=== PATIENT | male | born 1970 | race Caucasian/White ===

== ENCOUNTER 2019-01-13 13:11 | Emergency (ER) | payer BC ==
[~2019-01-13] VITALS: Ht 180.3 cm; Wt 108.9 kg
[~2019-01-13 13:11] MED LIST: ALBIPROI; ALBU90OI; ALBU90OI INH; AMOX875; AZIT500 PO; BENZ100A PO; BUDE6HFA INH; DOXY100 PO; FLUSAL5005; HYDGUAL120 PO; LEVFLO500 PO; PRED10 PO; PRED20 PO; TRIA55OI
[2019-01-13] MEDS ORDERED: ALBU90OI6 INH (15:15)
[2019-01-13] MEDS ORDERED: META800 PO (15:15)
[2019-01-13] MEDS ORDERED: OLAN5 PO ×2 (15:38→15:40)
== END 2019-01-13 15:46 | disposition home or self-care (01) ==
LOC: ER 13:11
DX: Z76.0 Encounter for issue of repeat prescription (principal); Z87.891 Personal history of nicotine dependence; Z79.899 Other long term (current) drug therapy; J45.909 Unspecified asthma, uncomplicated; F31.9 Bipolar disorder, unspecified; F43.10 Post-traumatic stress disorder, unspecified
CPT/HCPCS: 99281

== ENCOUNTER 2019-07-09 10:25 | Emergency (ER) | payer BC ==
[~2019-07-09] VITALS: Ht 177.8 cm; Wt 99.8 kg
[~2019-07-09 10:25] MED LIST changes: +ALBU90OI6 INH; +META800 PO; +OLAN5 PO
[2019-07-09] MEDS ORDERED: Lithium Carbon450 MG PO (10:37)
[2019-07-09 11:02] LABS: BASOPHILS ABSOLUTE AUTO 0.08 K/mm3 (0.00-0.23); BASOPHILS PERCENT AUTO 1 % (0-2); EOSINOPHILS ABSOLUTE AUTO 0.25 K/mm3 (0.00-0.68); EOSINOPHILS PERCENT AUTO 2 % (0-6); Hematocrit 44.3 % (37.0-53.0); Hemoglobin 15.4 g/dL (13.5-17.5); IMMATURE GRAN ABSOLUTE AUTO 0.03 K/mm3 (0.00-0.10); IMMATURE GRAN PERCENT AUTO 0 % (0-1); LYMPHOCYTES ABSOLUTE AUTO 2.86 K/mm3 (0.84-5.20); LYMPHOCYTES PERCENT AUTO 28 % (21-46); MONOCYTES ABSOLUTE AUTO 0.68 K/mm3 (0.16-1.47); MONOCYTES PERCENT AUTO 7 % (4-13); Mean Corpuscular HGB 31.6 pg (26.0-34.0); Mean Corpuscular HGB Conc 34.8 g/dL (31.5-36.5); Mean Corpuscular Volume 91 fL (80-100); Mean Platelet Volume 11.3 fL (9.1-12.4); NEUTROPHILS ABSOLUTE AUTO 6.41 K/mm3 (1.96-9.15); NEUTROPHILS PERCENT AUTO 62 % (41-73); Platelet Count 195 K/mm3 (150-400); RDW Coefficient Variation 12.1 % (11.7-14.2); RDW Standard Deviation 40.2 fL (35.1-46.3); Red Blood Cell Count 4.87 M/mm3 (4.30-5.90); White Blood Cell Count 10.31 K/mm3 (4.00-11.30)
[2019-07-09 11:16] LABS: Alanine Aminotransfer (ALT/SGP 25 U/L (12-78); Albumin, Blood 3.6 g/dL (3.4-5.0); Albumin/Globulin Ratio 1.1 (0.8-1.8); Alk Phos 81 U/L (50-136); Anion Gap 7 mmol/L (6-16); Aspartate Aminotrans (AST/SGOT 19 U/L (12-37); Bilirubin, Total 0.4 mg/dL (0.1-1.0); Blood Urea Nitrogen 12 mg/dL (8-24); Bun/Creatinine Ratio 11.9 (12.0-20.0); CO2, Blood 23 mmol/L (21-32); Calcium, Blood 8.7 mg/dL (8.5-10.1); Chloride, Blood 108 mmol/L (98-108); Creatinine, Blood 1.01 mg/dL (0.60-1.20); Globulin, Blood 3.2 g/dL (2.2-4.0); Glomerular Filtration Rate >60 (60-); Glucose, Blood 105 mg/dL (70-99); Magnesium, Blood 1.8 mg/dL (1.6-2.4); Potassium, Blood 4.2 mmol/L (3.5-5.5); Sodium, Blood 138 mmol/L (136-145); Total Protein, Blood 6.8 g/dL (6.4-8.2); Troponin I <0.015 ng/mL (0.000-0.040)
[2019-07-09 11:55] LABS: Lithium 0.22 mmol/L (0.60-1.20)
[2019-07-09 11:58] LABS: Free Thyroxine 0.9 ng/dL (0.70-1.60)
[2019-07-09 12:00] LABS: Thyroid Stimulating Hormone 1.19 uIU/mL (0.360-4.800)
[2019-07-13] MEDS ORDERED: PROP10 PO (02:53)
== END 2019-07-09 13:22 | disposition home or self-care (01) ==
LOC: ER 10:25
PROVIDERS: Emergency Medicine
DX: I49.3 Ventricular premature depolarization (principal); F31.81 Bipolar II disorder; F43.10 Post-traumatic stress disorder, unspecified; Z87.891 Personal history of nicotine dependence; Z79.899 Other long term (current) drug therapy
CPT/HCPCS: 71046; 80053; 80178; 83735; 84439; 84443; 84484; 85025; 93005; 93010; 99285-25

== ENCOUNTER → 2019-07-12 | Outpatient (CLI) | payer BC ==
[~2019-07-12] MED LIST changes: +Ativan1 MG PO; +Lithium Carbon450 MG PO; +PROP10 PO
== END | disposition home or self-care (01) ==
LOC: LAB SHORT 10:19 → LAB EV 10:19
DX: R07.9 Chest pain, unspecified (principal)
CPT/HCPCS: 84484

== ENCOUNTER 2019-07-13 15:32 | Emergency (ER) | payer BC ==
[~2019-07-13] VITALS: Ht 177.8 cm; Wt 97.5 kg
[~2019-07-13 15:32] MED LIST changes: -Ativan1 MG PO
[2019-07-13] MEDS ORDERED: Ativan1 MG PO (16:48)
[2019-07-13 17:03] LABS: Alanine Aminotransfer (ALT/SGP 23 U/L (12-78); Albumin, Blood 3.6 g/dL (3.4-5.0); Albumin/Globulin Ratio 1.3 (0.8-1.8); Alk Phos 73 U/L (50-136); Anion Gap 4 mmol/L (6-16); Aspartate Aminotrans (AST/SGOT 15 U/L (12-37); Bilirubin, Total 0.7 mg/dL (0.1-1.0); Blood Urea Nitrogen 9 mg/dL (8-24); Bun/Creatinine Ratio 10.3 (12.0-20.0); CO2, Blood 24 mmol/L (21-32); Chloride, Blood 110 mmol/L (98-108); Creatinine, Blood 0.88 mg/dL (0.60-1.20); Globulin, Blood 2.8 g/dL (2.2-4.0); Glomerular Filtration Rate >60 (60-); Glucose, Blood 107 mg/dL (70-99); Sodium, Blood 138 mmol/L (136-145); Total Protein, Blood 6.4 g/dL (6.4-8.2)
[2019-07-13 17:05] LABS: Troponin I <0.015 ng/mL (0.000-0.040)
== END 2019-07-13 17:46 | disposition home or self-care (01) ==
LOC: ER 15:32
PROVIDERS: Emergency Medicine; Physician Assistant
DX: I49.3 Ventricular premature depolarization (principal); F41.9 Anxiety disorder, unspecified; J45.909 Unspecified asthma, uncomplicated; F43.10 Post-traumatic stress disorder, unspecified; F31.81 Bipolar II disorder; Z79.899 Other long term (current) drug therapy
CPT/HCPCS: 36415; 80053; 84443; 84484; 93005; 93010; 99283-25

== ENCOUNTER 2019-08-07 11:36 | Emergency (ER) | payer BC ==
[~2019-08-07] VITALS: Ht 177.8 cm; Wt 99.8 kg
[~2019-08-07 11:36] MED LIST changes: +Ativan1 MG PO
[2019-08-07 12:14] LABS: BASOPHILS ABSOLUTE AUTO 0.05 K/mm3 (0.00-0.23); BASOPHILS PERCENT AUTO 1 % (0-2); EOSINOPHILS ABSOLUTE AUTO 0.25 K/mm3 (0.00-0.68); EOSINOPHILS PERCENT AUTO 3 % (0-6); Hematocrit 44.1 % (37.0-53.0); Hemoglobin 15.1 g/dL (13.5-17.5); IMMATURE GRAN ABSOLUTE AUTO 0.07 K/mm3 (0.00-0.10); IMMATURE GRAN PERCENT AUTO 1 % (0-1); LYMPHOCYTES ABSOLUTE AUTO 2.64 K/mm3 (0.84-5.20); LYMPHOCYTES PERCENT AUTO 28 % (21-46); MONOCYTES ABSOLUTE AUTO 0.84 K/mm3 (0.16-1.47); MONOCYTES PERCENT AUTO 9 % (4-13); Mean Corpuscular HGB 31.8 pg (26.0-34.0); Mean Corpuscular HGB Conc 34.2 g/dL (31.5-36.5); Mean Corpuscular Volume 93 fL (80-100); Mean Platelet Volume 10.9 fL (9.1-12.4); NEUTROPHILS ABSOLUTE AUTO 5.69 K/mm3 (1.96-9.15); NEUTROPHILS PERCENT AUTO 60 % (41-73); Platelet Count 210 K/mm3 (150-400); RDW Coefficient Variation 12.2 % (11.7-14.2); RDW Standard Deviation 41.7 fL (35.1-46.3); Red Blood Cell Count 4.75 M/mm3 (4.30-5.90); White Blood Cell Count 9.54 K/mm3 (4.00-11.30)
[2019-08-07 12:24] LABS: Alanine Aminotransfer (ALT/SGP 32 U/L (12-78); Albumin, Blood 3.4 g/dL (3.4-5.0); Alk Phos 91 U/L (50-136); Anion Gap 4 mmol/L (6-16); Aspartate Aminotrans (AST/SGOT 22 U/L (12-37); Bilirubin, Total 0.4 mg/dL (0.1-1.0); Blood Urea Nitrogen 17 mg/dL (8-24); Bun/Creatinine Ratio 18.7 (12.0-20.0); CO2, Blood 29 mmol/L (21-32); Chloride, Blood 110 mmol/L (98-108); Creatinine, Blood 0.91 mg/dL (0.60-1.20); Globulin, Blood 3.4 g/dL (2.2-4.0); Glomerular Filtration Rate >60 (60-); Glucose, Blood 98 mg/dL (70-99); Potassium, Blood 4.6 mmol/L (3.5-5.5); Sodium, Blood 143 mmol/L (136-145); Total Protein, Blood 6.8 g/dL (6.4-8.2); Troponin I <0.015 ng/mL (0.000-0.040)
[2019-08-07] MEDS ORDERED: Clonazepam0.5 MG PO (13:00)
[2019-08-07] MEDS ORDERED: OLANZAPINE5 M1 PO (13:00)
[2019-08-07] MEDS ORDERED: Hydroxyzine HCl50 MG (13:00)
[2019-08-07] MEDS ORDERED: NEBI5 PO (13:01)
== END 2019-08-07 13:37 | disposition home or self-care (01) ==
LOC: ER 11:36
PROVIDERS: Emergency Medicine
DX: R00.2 Palpitations (principal); R00.8 Other abnormalities of heart beat; F31.81 Bipolar II disorder; F43.10 Post-traumatic stress disorder, unspecified; Z87.891 Personal history of nicotine dependence; Z79.899 Other long term (current) drug therapy
CPT/HCPCS: 36415; 80053; 83735; 83880; 84484; 85025; 93005; 93010; 96360; 99285-25; J7030

== ENCOUNTER 2024-03-18 10:28 | Emergency (ER) | payer BC ==
[~2024-03-18] VITALS: Ht 180.3 cm; Wt 117.9 kg
[~2024-03-18 10:28] MED LIST changes: +Clonazepam0.5 MG PO; +Hydroxyzine HCl50 MG; +NEBI5 PO; +OLANZAPINE5 M1 PO
[2024-03-18] MEDS ORDERED: NS 1,000 ML IV SCH (11:10)
[2024-03-18 11:22] LABS: BASOPHILS ABSOLUTE AUTO 0.04 K/mm3 (0.00-0.23); BASOPHILS PERCENT AUTO 1 % (0-2); EOSINOPHILS ABSOLUTE AUTO 0.11 K/mm3 (0.00-0.68); EOSINOPHILS PERCENT AUTO 2 % (0-6); Hematocrit 44.6 % (37.0-53.0); Hemoglobin 15.7 g/dL (13.5-17.5); IMMATURE GRAN ABSOLUTE AUTO 0.04 K/mm3 (0.00-0.10); IMMATURE GRAN PERCENT AUTO 1 % (0-1); LYMPHOCYTES ABSOLUTE AUTO 1.28 K/mm3 (0.84-5.20); LYMPHOCYTES PERCENT AUTO 18 % (21-46); MONOCYTES ABSOLUTE AUTO 0.86 K/mm3 (0.16-1.47); MONOCYTES PERCENT AUTO 12 % (4-13); Mean Corpuscular HGB 33.3 pg (26.0-34.0); Mean Corpuscular HGB Conc 35.2 g/dL (31.5-36.5); Mean Corpuscular Volume 95 fL (80-100); Mean Platelet Volume 11.1 fL (9.1-12.4); NEUTROPHILS ABSOLUTE AUTO 4.69 K/mm3 (1.96-9.15); NEUTROPHILS PERCENT AUTO 67 % (41-73); Platelet Count 165 K/mm3 (150-400); RDW Coefficient Variation 11.4 % (11.7-14.2); RDW Standard Deviation 39.5 fL (35.1-46.3); Red Blood Cell Count 4.71 M/mm3 (4.30-5.90); White Blood Cell Count 7.02 K/mm3 (4.00-11.30)
[2024-03-18 11:27] LABS: Albumin, Blood 3.5 g/dL (3.4-5.0); Albumin/Globulin Ratio 1.2 (0.8-1.8); Bilirubin, Total 0.8 mg/dL (0.1-1.0); Bun/Creatinine Ratio 15.3 (12.0-20.0); Calcium, Blood 8.6 mg/dL (8.5-10.1); Creatinine, Blood 0.79 mg/dL (0.60-1.20); Globulin, Blood 2.9 g/dL (2.2-4.0); Magnesium, Blood 2.3 mg/dL (1.6-2.4); Potassium, Blood 4.2 mmol/L (3.5-5.5); Total Protein, Blood 6.4 g/dL (6.4-8.2)
[2024-03-18 13:15] VITALS: BP 117/85
== END 2024-03-18 13:24 | disposition home or self-care (01) ==
LOC: ER 10:28
PROVIDERS: Student in an Organized Health Care Education/Training Program
DX: R00.2 Palpitations (principal); R55 Syncope and collapse; F43.10 Post-traumatic stress disorder, unspecified; Z86.79 Personal history of other diseases of the circulatory system; Z87.891 Personal history of nicotine dependence; J45.909 Unspecified asthma, uncomplicated; Z79.899 Other long term (current) drug therapy
CPT/HCPCS: 71046; 80053; 83735; 83880; 84484; 85025; 93005; 93010; 93246; 96360; 99284-25; J7030

== ENCOUNTER 2024-07-28 08:57 | Day surgery (SDC) | payer BC ==
[2024-07-28] VITALS (9 sets, daily range): BP systolic 135–157; BP diastolic 76–94
[~2024-07-28] VITALS: Ht 180.3 cm; Wt 118.4 kg
[~2024-07-28 08:57] MED LIST changes: +METO25ER PO; +NEXLIZET 180-11 EACH PO
[2024-07-28] MEDS ORDERED: NS 1,000 ML IV ONE (09:10)
[2024-07-28] MEDS ORDERED: Heparin Sodium 1000 Units/ML 10ML MDV ONE (09:10)
[2024-07-28] MEDS ORDERED: Verapamil HCL 2.5 MG/ML 2ML Injection ONE (09:10)
[2024-07-28] MEDS ORDERED: Nitroglycerin 2 MG/20 ML BTL ONE (09:10)
[2024-07-28] MEDS ORDERED: NS 250 ML IV ONE (09:10)
[2024-07-28] MEDS ORDERED: ALBU90OI INH (09:18)
[2024-07-28] MEDS ORDERED: QVAR REDIHALE10.6 G3 INH (09:19)
[2024-07-28] MEDS ORDERED: QVAR REDIHALE10.6 G2 INH (09:20)
[2024-07-28] MEDS ORDERED: ASPI81CH PO (09:22)
[2024-07-28] MEDS ORDERED: Midazolam HCl 1MG / ML 2ML Vial ONE (09:44)
[2024-07-28] MEDS ORDERED: DiphenhydrAMINE HCl 50 MG/ML 1ML Vial ONE (09:44)
[2024-07-28] MEDS ORDERED: Hydrocortisone Sod Succinate 100 MG Vial ONE (09:44)
[2024-07-28] MEDS ORDERED: FentaNYL Citrate 50 MCG/ML 2 ML Injection ONE (09:45)
[2024-07-28] MEDS ORDERED: NS 500 ML IV ONE (09:45)
[2024-07-28] MEDS ORDERED: Famotidine 10 MG/ML 2ML Vial ONE (09:46)
[2024-07-28] MEDS ORDERED: DILT120 PO (10:48)
--- NOTE | 2024-07-28 13:48 | NUR ---
DISCHARGE INSTRUCTIONS REVIEWED. PT. ABLE TO GET SELF DRESSED W/O DIFFICULTY. PT. IV REMOVED CATHETER INCTACT. DR. TERRY CALLED REGARDING PT QUESTIONS ABOUT MEDICATIONS. DOSE INCREASED ON METOPROLOL TO 50MG PO DAILY. PT. VSS PRIOR TO DISCHARGE. RIGHT RADIAL SITE WNL, NO OOZING OR HEMATOMA. BANDAGE PLACED OVER SITE, ARM BOARD IN PLACE UPON DEPARTURE.
== END 2024-07-28 14:30 | disposition home or self-care (01) ==
LOC: MHTC 08:57
DX: I25.10 Atherosclerotic heart disease of native coronary artery without angina pectoris (principal); E78.5 Hyperlipidemia, unspecified; F43.10 Post-traumatic stress disorder, unspecified; F31.81 Bipolar II disorder; Z79.899 Other long term (current) drug therapy; Z87.891 Personal history of nicotine dependence; Z91.041 Radiographic dye allergy status
CPT/HCPCS: 76937; 93454; 99152; C1769; C1887; C1894; J1200; J1644; J1720; J2250; J3010; J7030; J7040; J7050; Q9967